=== PATIENT | female | born 1955 | race Asian ===

== ENCOUNTER 2025-10-04 14:01 | Outpatient (CLI) | payer OTHER | END 2025-10-04 14:02 | disposition home or self-care (01) | LOC: CSHMAMMO 14:01 | PROVIDERS: ATTEND Family Medicine | DX: Z12.31 Encounter for screening mammogram for malignant neoplasm of breast (principal); R92.333 Mammographic heterogeneous density, bilateral breasts | CPT/HCPCS: 77063; 77067 ==